=== PATIENT | male | born 1970 | race Caucasian/White ===

== ENCOUNTER 2018-09-21 09:17 | Emergency (ER) | payer OTHER, SELFPAY ==
[2018-09-21 09:22] VITALS: BP 127/79; PULSE 93; RESP 116; TEMP 36.5; O2SAT 98; BMI 31.4
--- NOTE | 2018-09-21 09:44 | ED.MALEGU ---
HPI - Male Genitourinary General Chief complaint: Urogenital-Male Stated complaint: testicular pain/swelling Time Seen by Provider: 09/21/18 09:25 Source: patient Mode of arrival: ambulatory Limitations: no limitations History of Present Illness HPI Narrative: 48-year-old male, nonsmoker, with history of hypertension presents from the walk-in clinic for evaluation of swollen painful right testicle. He denies dysuria, frequency or urgency. He denies any penile discharge. He denies any injury. He has increasing pain with palpation of his testicles but is otherwise well MD Complaint: testicle pain and testicle swelling Onset (ago): day(s) Duration: constant Location: right testicle Severity scale (1-10): 5 Quality: aching Relieving factors: none Exacerbating factors: none Reports denies other symptoms Related Data Sexually active: Yes Previous Rx's Medication Instructions Recorded amlodipine 5 mg tablet 5 mg PO DAILY #90 tab 03/13/18 ciprofloxacin HCl 500 mg PO BID #20 tab 09/21/18 Allergies Allergy/AdvReac Type Severity Reaction Status Date / Time lisinopril [LISINOPRIL] AdvReac Mild cough Verified 09/21/18 09:22 Review of Systems Constitutional Denies chills, Denies fever(s), Denies lethargy and Denies weakness Eyes Denies change in vision, Denies eye discharge, Denies irritation and Denies loss of vision ENT Ears, Nose, Mouth, and Throat: Denies change in voice, Denies neck pain and Denies sore throat Cardiovascular Denies chest pain, Denies irregular heart rhythm, Denies lightheadedness, Denies palpitations, Denies dyspnea, Denies dyspnea on exertion and Denies orthopnea Respiratory Denies cough, Denies dyspnea, Denies dyspnea on exertion and Denies wheezing Gastrointestinal Gastrointestinal: Denies abdominal pain, Denies change in bowel habits, Denies diarrhea, Denies nausea and Denies vomiting Genitourinary Denies hematuria, Denies flank pain, Reports testicular pain, Denies urinary incontinence and Denies urinary urgency Musculoskeletal Denies neck pain Integumentary/Breasts Denies pruritus, Denies erythema, Denies rash and Denies wounds Neurologic Denies confusion, Denies loss of vision and Denies weakness Psychiatric Denies anxiety, Denies confusion, Denies depression, Denies homicidal ideation and Denies suicidal ideation Endocrine Denies palpitations Hematologic/Lymphatic Denies easy bruising Allergic/Immunologic Denies wheezing PFSH Medical History Foot pain (Chronic 2013) Hypertension (Chronic 2009) Surgical History Anesthesia (Resolved) S/P ACL surgery (Resolved ~1996) Family History Father Age: 74 Hypertension Grandmother Dementia Mother Age: 71 Hypertension Grandfather CAD (coronary artery disease) Myocardial infarction Family/Other CAD (coronary artery disease) Grandfather CVA (cerebral vascular accident) Social History Smoking Status: Never smoker Family History Father Age: 74 Hypertension Grandmother Dementia Mother Age: 71 Hypertension Grandfather CAD (coronary artery disease) Myocardial infarction Family/Other CAD (coronary artery disease) Grandfather CVA (cerebral vascular accident) Social History Smoking Status: Never smoker Exam Narrative Exam Narrative: GEN: AOx3 and in mild distress EYES: Pupils are equal, round, and reactive to light and accommodation. Extraoccular muscles are intact bilaterally. There is no subconjunctival hemorrhage or exudate. CHEST: Lungs are clear to auscultation bilaterally and free of wheezes, rales, or rhonchi. Heart rate is regular rhythm, there are no murmurs, clicks, rubs, or gallops. There is no chest wall tenderness. ABD: Abdomen is soft and nontender. There is no guarding or rebound. Bowel sounds are normal in all 4 quadrants. There is no mass or organomegaly. : right testicle examined with patient standing. Tender to palpate on superior pole with no obvious external manifestation of illness such as swelling, redness or discoloration. No hernia noted EXT: Full painless ROM of all extremities with no loss of sensation or strength. SKIN: Warm, pink, and dry. No erythema or rash Initial Vital Signs Initial Vital Signs: Vital Signs Temperature 97.7 F 09/21/18 09:22 Pulse Rate 93 H 09/21/18 09:22 Respiratory Rate 116 H 09/21/18 09:22 Blood Pressure 127/79 09/21/18 09:22 Pulse Oximetry 98 09/21/18 09:22 Course Vital Signs - 8 hr 09/21/18 09:22 Temperature 97.7 F Pulse Rate 93 H Respiratory Rate 116 H Blood Pressure 127/79 Pulse Oximetry 98 MDM - Male Genitourinary Lab Data Urine Dip Bedside Urine Glucose Negative Bedside Urine Bilirubin - Negative Bedside Urine Ketone - Negative Urine Specific [place] 1.025 Bedside Urine Occult Blood - Negative Bedside Urine pH 6.0 Bedside Urine Protein - Negative Bedside Urine Urobilinogen - Negative Bedside Urine Nitrite - Negative Bedside Urine Leukocytes - Negative Esterase Imaging Data testicular US: Radiologist's impression: Patient: Joseph Naranjo [facility]#: [id number] : 1970Acct:[id number] Age/Sex: 48 / MDate of Service: 09/21/18 Loc: ED Accession Number: [id number] Procedure: US scrotum Ordering Provider: Wyatt Rasmussen D.O. PROCEDURE: US SCROTUM INDICATIONS: severe R testicle pain since yesterday, no injury TECHNIQUE: Real-time scanning was performed of the scrotum and testicles, with image documentation. Color and pulse Doppler interrogation was performed of both testicles. COMPARISON: None. FINDINGS: Right: Testicle is normal in size at 4.0 x 2.6 x 1.9 cm, and homogenous in echotexture. Heterogeneous right epididymal echotexture is seen with increased vascularity. 7 mm cyst is noted in right epididymis. 5 x 4 x 3 mm echogenic focus is seen in right epididymal tail with no internal vascularity. Small hydrocele is seen. No varicoceles. Overlying scrotal skin is normal in thickness. Left: Testicle is normal in size at 4.4 x 2.6 x 2.0 cm, and homogeneous in echotexture. Heterogeneous left epididymal echotexture is seen with normal internal vascularity. No discrete left testicular lesion is seen. Small hydrocele is noted. No varicoceles. Overlying scrotal skin is normal in thickness. Doppler: Color and pulse Doppler demonstrate normal and symmetric arterial flow in both testicles. IMPRESSION: 1. No evidence of testicular torsion or discrete testicular lesion. Small bilateral hydrocele. 2. Findings suggestive of right epididymitis. 5 x 4 x 3 mm non-vascular echogenic focus involving right epididymal tail which may represent small calcification from prior injury/infraction. Slightly heterogeneous left epididymal echotexture with no increased vascularity to suggest epididymitis. Dictated by: Doug Pereira M.D. on 09/21/2018 at 10:45 Approved by: Doug Pereira M.D. on 09/21/2018 at 10:48 Discharge Plan Departure Patient Disposition: Home Clinical Impression: Acute epididymitis Discharge Date/Time: 09/21/18 11:45 Interventions: ED Discharge Assessment Last Done: 09/21/18 11:44 Instructions: DI for Epididymitis Activity Restrictions/Additional Instructions: *You have been diagnosed with [acute epididymitis ] *What to do: *Take medications as directed: Antibiotic is electronically transmitted to the [facility] in [place] at your request *Follow up with your primary care provider in 2-3 days, call for an appointment. Let them know you were seen in the Emergency Department and that we ask that you be seen in follow up *Return to ER if you should have any new, worsening or concerning symptoms Prescriptions: New ciprofloxacin HCl 500 mg tablet 500 mg PO BID Qty: 20 RF: 0 No Action amlodipine [Norvasc] 5 mg tablet 5 mg PO DAILY Qty: 90 RF: 1
--- NOTE | 2018-09-21 09:54 | DI.US.S_ITS ---
PROCEDURE: US SCROTUM INDICATIONS: severe R testicle pain since yesterday, no injury TECHNIQUE: Real-time scanning was performed of the scrotum and testicles, with image documentation. Color and pulse Doppler interrogation was performed of both testicles. COMPARISON: None. FINDINGS: Right: Testicle is normal in size at 4.0 x 2.6 x 1.9 cm, and homogenous in echotexture. Heterogeneous right epididymal echotexture is seen with increased vascularity. 7 mm cyst is noted in right epididymis. 5 x 4 x 3 mm echogenic focus is seen in right epididymal tail with no internal vascularity. Small hydrocele is seen. No varicoceles. Overlying scrotal skin is normal in thickness. Left: Testicle is normal in size at 4.4 x 2.6 x 2.0 cm, and homogeneous in echotexture. Heterogeneous left epididymal echotexture is seen with normal internal vascularity. No discrete left testicular lesion is seen. Small hydrocele is noted. No varicoceles. Overlying scrotal skin is normal in thickness. Doppler: Color and pulse Doppler demonstrate normal and symmetric arterial flow in both testicles. IMPRESSION: 1. No evidence of testicular torsion or discrete testicular lesion. Small bilateral hydrocele. 2. Findings suggestive of right epididymitis. 5 x 4 x 3 mm non-vascular echogenic focus involving right epididymal tail which may represent small calcification from prior injury/infraction. Slightly heterogeneous left epididymal echotexture with no increased vascularity to suggest epididymitis. Dictated by: Doug Pereira M.D. on 09/21/2018 at 10:45 Approved by: Doug Pereira M.D. on 09/21/2018 at 10:48
[2018-09-21 11:44] VITALS: BP 127/71; PULSE 83; RESP 14; O2SAT 96
== END 2018-09-21 11:45 | disposition home or self-care (01) ==
PROVIDERS: Emergency Provider Emergency Medicine
DX: N45.1 Epididymitis (principal)
CPT/HCPCS: 76870; 81003; 99282; 99284

== ENCOUNTER → 2018-10-29 15:42 | Outpatient (CLI) | payer OTHER, SELFPAY | PROVIDERS: Visit Provider Physician Assistant | DX: R07.0 Pain in throat (principal) | CPT/HCPCS: 87070 ==

== ENCOUNTER → 2021-12-02 07:53 | Outpatient (CLI) | payer OTHER, SELFPAY ==
--- NOTE | 2021-12-02 07:55 | DI.RAD.S_ITS ---
PROCEDURE: XR RIBS RT MIN 3V W CXR 1V INDICATIONS: Right-sided rib pain TECHNIQUE: 3 views of the right ribs were acquired, along with a single view chest. COMPARISON: None. FINDINGS: Surgical changes and devices: None. Bones and chest wall: There is a nondisplaced rib fracture in the lateral right 9th and possibly 8th ribs. No suspicious bony lesions. Overlying soft tissues appear unremarkable. Lungs and pleura: No pleural effusions or pneumothorax. Lungs appear clear. Mediastinum: Mediastinal contours appear normal. Heart size is normal. IMPRESSION: Nondisplaced right lateral 9th and possibly 8th rib fractures. Dictated by: Terra Barlow M.D. on 12/02/2021 at 9:16 Approved by: Terra Barlow M.D. on 12/02/2021 at 9:17
== END ==
PROVIDERS: PCP Family Medicine; Referring Provider Nurse Practitioner Family; Visit Provider Nurse Practitioner Family
DX: S22.31XA Fracture of one rib, right side, initial encounter for closed fracture (principal); R07.81 Pleurodynia; X58.XXXA Exposure to other specified factors, initial encounter
CPT/HCPCS: 71101

== ENCOUNTER → 2021-12-04 06:55 | Outpatient (CLI) | payer OTHER, SELFPAY ==
[2021-12-04 08:27] LABS: Creatinine Urine Random 269.8 mg/dL
[2021-12-04 08:28] LABS: Add Manual Diff / Slide Review NO; Basophils Absolute Auto 0 /uL (0-100); Basophils Percent Auto 0.7 % (0-2); Eosinophils Absolute Auto 100 /uL (0-450); Eosinophils Percent Auto 1.4 % (2-4); Hematocrit 44.8 % (41-53); Hemoglobin 15.2 g/dL (13.5-17.5); Lymphocytes Absolute Auto 2100 /uL (1100-4500); Lymphocytes Percent Auto 41.4 % (25-40); Mean Corpuscular Hemoglobin 30.7 PG (26-34); Mean Corpuscular Volume 90.2 fL (80-100); Monocytes Absolute Auto 500 /uL (0-900); Monocytes Percent Auto 10.1 % (3-14); Neutrophils Absolute Auto 2400 /uL (1500-7000); Neutrophils Percent Auto 46.4 % (50-75); Platelet Count 269 X10^3/uL (150-400); Red Blood Cell Count 4.97 X10^6/uL (4.5-5.9); Red Cell Distribution Width 13.4 % (11.6-14.8); White Blood Cell Count 5.1 X10^3/uL (4.5-11.0)
[2021-12-04 08:32] LABS: Microalbumin Urine Random 1.1 mg/dL (0-1.6)
[2021-12-04 08:35] LABS: Alanine Aminotransferase 31 IU/L (<50); Albumin 4.4 g/dL (3.5-5.0); Albumin Globulin Ratio 1.7 (1.0-2.8); Alkaline Phosphatase 61 U/L (38-126); Aspartate Aminotransferase 25 IU/L (17-59); Bilirubin Total 0.5 mg/dL (0.2-1.3); Blood Urea Nitrogen 16 mg/dL (9-20); Carbon Dioxide 30 mmol/L (22-32); Chloride 104 mmol/L (98-107); Cholesterol 202 mg/dL (140-199); Estimated Glomerular Filt Rate > 60 mL/min (>60); Globulin 2.6 g/dL (1.7-4.1); Glucose 90 mg/dL (70-100); HDL Cholesterol 53 mg/dL (40-60); HEMOLYSIS < 15 (0-50); LDL Cholesterol Calculated 131 mg/dL (<100); Potassium 4.6 mmol/L (3.4-5.1); Sodium 142 mmol/L (137-145); Triglycerides 90 mg/dL (35-150)
== END ==
PROVIDERS: PCP Physician Assistant; Referring Provider Physician Assistant; Visit Provider Physician Assistant
DX: E78.00 Pure hypercholesterolemia, unspecified (principal); I10 Essential (primary) hypertension
CPT/HCPCS: 36415; 80053; 80061; 82043; 82570; 84443; 85025

== ENCOUNTER → 2022-11-01 18:32 | Outpatient (CLI) | payer OTHER, SELFPAY | PROVIDERS: Visit Provider Nurse Practitioner Family | DX: R05.9 Cough, unspecified (principal) | CPT/HCPCS: 87070; 87077 ==

== ENCOUNTER → 2023-04-12 13:22 | Outpatient (CLI) | payer OTHER, SELFPAY ==
--- NOTE | 2023-04-12 | DI.RAD.S_ITS ---
PROCEDURE: XR HAND RT MIN 3V INDICATIONS: HAND PAIN TECHNIQUE: 3 views of the hand(s) acquired. COMPARISON: None. FINDINGS: Bones: No fractures or dislocations. Carpal bones are normally aligned. No suspicious bony lesions. Soft tissues: No suspicious soft tissue calcifications. IMPRESSION: No fracture. No osseous lesion. If symptoms and/or clinical suspicion for pathology persists, further assessment with repeat radiographs (7-10 days) or advanced imaging (e.g. CT, MRI or bone scan) should be considered. Dictated by: Rosemarie Kumar MD, PhD on 04/12/2023 at 15:04 Approved by: Rosemarie Kumar MD, PhD on 04/12/2023 at 15:04
== END ==
PROVIDERS: PCP Family Medicine; Referring Provider Nurse Practitioner Family; Visit Provider Nurse Practitioner Family
DX: M79.644 Pain in right finger(s) (principal)
CPT/HCPCS: 73130

== ENCOUNTER → 2023-05-02 06:54 | Outpatient (CLI) | payer OTHER, SELFPAY ==
[2023-05-02 08:45] LABS: Add Manual Diff / Slide Review NO; Basophils Absolute Auto 0 /uL (0-100); Basophils Percent Auto 0.4 % (0-2); Eosinophils Absolute Auto 100 /uL (0-450); Eosinophils Percent Auto 1.6 % (2-4); Hematocrit 42.3 % (41-53); Hemoglobin 14.6 g/dL (13.5-17.5); Lymphocytes Absolute Auto 2100 /uL (1100-4500); Lymphocytes Percent Auto 42.9 % (25-40); Mean Corpuscular HGB Conc 34.6 % (30-36); Mean Corpuscular Hemoglobin 31.6 PG (26-34); Mean Corpuscular Volume 91.2 fL (80-100); Monocytes Absolute Auto 500 /uL (0-900); Monocytes Percent Auto 9.4 % (3-14); Neutrophils Absolute Auto 2200 /uL (1500-7000); Neutrophils Percent Auto 45.7 % (50-75); Platelet Count 215 X10^3/uL (150-400); Red Blood Cell Count 4.63 X10^6/uL (4.5-5.9); Red Cell Distribution Width 13.7 % (11.6-14.8); White Blood Cell Count 4.9 X10^3/uL (4.5-11.0)
[2023-05-02 09:14] LABS: Alanine Aminotransferase 29 IU/L (<50); Albumin 4.3 g/dL (3.5-5.0); Albumin Globulin Ratio 1.8 (1.0-2.8); Alkaline Phosphatase 44 U/L (38-126); Aspartate Aminotransferase 21 IU/L (17-59); BUN Creatinine Ratio 16.9 (6-22); Bilirubin Total 0.5 mg/dL (0.2-1.3); Blood Urea Nitrogen 14 mg/dL (9-20); Calcium 9.8 mg/dL (8.4-10.2); Carbon Dioxide 29 mmol/L (22-32); Chloride 103 mmol/L (98-107); Cholesterol 175 mg/dL (140-199); Estimated Glomerular Filt Rate > 60 mL/min (>60); Globulin 2.4 g/dL (1.7-4.1); Glucose 83 mg/dL (70-100); HDL Cholesterol 52 mg/dL (40-60); HEMOLYSIS < 15 (0-50); LDL Cholesterol Calculated 110 mg/dL (<100); Potassium 4.5 mmol/L (3.4-5.1); Sodium 141 mmol/L (137-145); Total Protein 6.7 g/dL (6.3-8.2); Triglycerides 65 mg/dL (35-150)
[2023-05-02 09:35] LABS: TSH w/ Reflex to FT4 1.36 uIU/mL (0.47-4.68)
[2023-05-02 16:56] LABS: Hep C Virus Ab w/Reflex Quant NEGATIVE s/c (NEGATIVE)
== END ==
PROVIDERS: PCP Nurse Practitioner Family; Referring Provider Nurse Practitioner Family; Visit Provider Nurse Practitioner Family
DX: Z13.220 Encounter for screening for lipoid disorders (principal); Z11.59 Encounter for screening for other viral diseases; Z13.1 Encounter for screening for diabetes mellitus; I10 Essential (primary) hypertension
CPT/HCPCS: 36415; 80053; 80061; 84443; 85025; 86803

== ENCOUNTER 2023-12-29 11:50 | Day surgery (SDC) | payer OTHER, SELFPAY ==
[2023-12-29 12:54] VITALS: BP 151/91; PULSE 102; RESP 18; TEMP 36.9; O2SAT 99
[2023-12-29] MEDS: LACTATED RINGERS 1,000 ML 42 ML IV (13:15)
--- NOTE | 2023-12-29 13:47 | P.HP_ITS ---
History of Present Illness History of Present Illness Date Patient Seen: 12/29/23 Time Patient Seen: 13:47 Chief complaint: SDC Narrative: Joseph a 53-year-old man who is here for his first screening colonoscopy. No family history of colon cancer. FOR[facility]LY [facility], [facility] Medical History (Updated 12/29/23 @ 13:48 by Aaron Holly MD) Hypertension (2009) Foot pain (2013) Surgical History Anesthesia S/P ACL surgery (~1996) Family History Father Age: 79 Hypertension Grandmother Dementia Mother Age: 76 Hypertension Grandfather CAD (coronary artery disease) Myocardial infarction Family/Other CAD (coronary artery disease) Grandfather CVA (cerebral vascular accident) Social History Smoking Status: Never smoker Meds Home Medications and Allergies Home Medications Medication Instructions Recorded Confirmed Type amlodipine 5 mg tablet 5 mg PO DAILY #90 tabs 02/03/23 12/29/23 Rx Allergies Allergy/AdvReac Type Severity Reaction Status Date / Time lisinopril [LISINOPRIL] AdvReac Mild cough Verified 12/29/23 12:50 Exam Vital Signs (past 8 hours): - 12/29/23 12:54 Temperature 98.5 F Pulse Rate 102 H Respiratory Rate 18 Blood Pressure 151/91 H Pulse Oximetry 99 Oxygen Delivery Method Room Air Oxygen Delivery Method Room Air Const General: healthy appearing Resp Effort & Inspection: normal respiratory effort Assessment & Plan Assessment and plan (1) Colon cancer screening: Status: Acute Plan We reviewed the risks and benefits of colonoscopy for colon cancer screening and he would like to proceed.
[2023-12-29 14:20] VITALS: BP 122/85; PULSE 82; RESP 19; TEMP 36.1; O2SAT 97
--- NOTE | 2023-12-29 14:24 | P.OP.COLON_ITS ---
Operative Date/Time/Diagnoses Date of procedure: 12/29/23 Time of procedure: 14:24 Pre-op diagnosis: Colon cancer screening Post-op diagnosis: same Procedure & Clinicians Study performed: Colonoscopy Same procedure as scheduled: Yes Surgeon: Aaron Holly Procedure Notes Procedure in detail: Surgeon: Aaron Holly MD Anesthesia: Nette Calderon MD Procedure: The patient was brought to the endoscopy suite, placed in left lateral decubitus position. The patient was connected to monitoring devices. A time-out was performed. Sedation was administered. Once the patient was adequately sedated, a digital rectal exam was performed and was normal. The scope was then inserted and advanced to the cecum where the appendiceal orifice was identified and photographed. The scope was then slowly withdrawn over greater than 6 minutes. The mucosa was thoroughly inspected. No polyps were fo und. The scope was retroflexed in the rectum. No abnormalities were found. The scope was straightened and removed. The patient was awakened and brought to recovery. Scope withdrawal time: 8 minutes Sedation time: 17 minutes EBL: 0 Findings: Normal colon Post-procedure Recommendations: Colonoscopy in 10 years Disposition: PACU
[2023-12-29 14:25] VITALS: BP 125/80; PULSE 79; RESP 18; O2SAT 96
[2023-12-29 14:30] VITALS: BP 119/81; PULSE 76; RESP 18; O2SAT 96
[2023-12-29 14:35] VITALS: BP 133/80; PULSE 80; RESP 22; TEMP 36.2; O2SAT 96
[2023-12-29 14:41] VITALS: BP 128/81; PULSE 80; RESP 18; O2SAT 98
== END 2023-12-29 14:45 | disposition home or self-care (01) ==
PROVIDERS: PCP Nurse Practitioner Family; Referring Provider Surgery; Visit Provider Surgery
PROC: 0DJD8ZZ Inspection of Lower Intestinal Tract, Via Natural or Artificial Opening Endoscopic (ICD-10-PCS; CPT 45378; principal; 2023-12-29 13:15)
DX: Z12.11 Encounter for screening for malignant neoplasm of colon (principal)
CPT/HCPCS: 45378; J2704

== ENCOUNTER → 2024-01-01 14:43 | Outpatient (CLI) | payer OTHER, SELFPAY ==
[2024-01-01 15:39] LABS: Influenza A - CEPHEID Flu A NEGATIVE (NEGATIVE); Influenza B - CEPHEID Flu B POSITIVE (NEGATIVE); Respiratory Syncytial Virus Negative (Negative)
[2024-01-01 15:45] LABS: COVID-19 CEPHEID 4-PLEX PCR Negative (Negative)
== END ==
PROVIDERS: PCP Nurse Practitioner Family; Visit Provider Physician Assistant Surgical
DX: J02.9 Acute pharyngitis, unspecified (principal)
CPT/HCPCS: 0241U; 87070; 87077; 87147

== ENCOUNTER → 2024-11-09 08:18 | Outpatient (CLI) | payer OTHER, SELFPAY ==
[2024-11-09 09:40] LABS: COVID-19 CEPHEID 4-PLEX PCR Negative (Negative); Influenza A - CEPHEID Flu A NEGATIVE (NEGATIVE); Influenza B - CEPHEID Flu B NEGATIVE (NEGATIVE); Respiratory Syncytial Virus Negative (Negative)
== END ==
PROVIDERS: Visit Provider Nurse Practitioner Family
DX: J02.9 Acute pharyngitis, unspecified (principal); R05.1 Acute cough
CPT/HCPCS: 0241U; 87070

== ENCOUNTER → 2025-05-03 06:59 | Outpatient (CLI) | payer OTHER, SELFPAY ==
[2025-05-03 08:33] LABS: Hematocrit 42.1 % (41-53); Hemoglobin 14.9 g/dL (13.5-17.5); Lymphocytes Absolute Auto 2100 /uL (1100-4500); Mean Corpuscular HGB Conc 35.4 % (30-36); Mean Corpuscular Hemoglobin 31.5 PG (26-34); Mean Corpuscular Volume 88.9 fL (80-100); Platelet Count 198 X10^3/uL (150-400)
[2025-05-03 08:45] LABS: Alanine Aminotransferase 21 IU/L (<50); Albumin 4.2 g/dL (3.5-5.0); Albumin Globulin Ratio 1.7 (1.0-2.8); Alkaline Phosphatase 50 U/L (38-126); Blood Urea Nitrogen 14 mg/dL (9-20); Calcium 9.0 mg/dL (8.4-10.2); Carbon Dioxide 27 mmol/L (22-32); Chloride 104 mmol/L (98-107); Cholesterol 169 mg/dL (140-199); Estimated Glomerular Filt Rate > 60 mL/min (>60); Globulin 2.5 g/dL (1.7-4.1); Glucose 83 mg/dL (70-99); HDL Cholesterol 47 mg/dL (40-60); HEMOLYSIS < 15 (0-50); Potassium 4.4 mmol/L (3.4-5.1); Sodium 138 mmol/L (137-145); Total Protein 6.7 g/dL (6.3-8.2); Triglycerides 82 mg/dL (35-150)
[2025-05-03 09:17] LABS: Add Manual Diff / Slide Review SLIDE REVIEW
[2025-05-03 09:41] LABS: RBC Morphology Norm
== END ==
PROVIDERS: PCP Family Medicine; Referring Provider Family Medicine; Visit Provider Family Medicine
DX: I10 Essential (primary) hypertension (principal); E78.00 Pure hypercholesterolemia, unspecified; Z12.5 Encounter for screening for malignant neoplasm of prostate
CPT/HCPCS: 36415; 80053; 80061; 85025; G0103